=== PATIENT | female | born 1950 | race Hispanic/Latino ===

== ENCOUNTER 2022-12-28 10:20 | Emergency (ER) | payer BC, MEDICARE ==
[~2022-12-28] VITALS: Ht 165.1 cm; Wt 83.9 kg
[~2022-12-28 10:20] MED LIST: ALBUTEROL PO; ESCI-8 PO; LOSA50TA64 PO; NAPR-1180 PO; OMEP20CA12 PO
[2022-12-28] MEDS ORDERED: DEXAMETHASONE 4 MG TAB ONE (10:51)
[2022-12-28] MEDS ORDERED: IBUPROFEN 600 MG TABLET ONE (10:52)
[2022-12-28] MEDS ORDERED: D-ME118S47 PO (11:34)
[2022-12-28] MEDS ORDERED: BENZ200C53 PO (11:34)
[2022-12-28] MEDS ORDERED: LORA10TA7 PO (11:34)
[2022-12-28 11:42] VITALS: BP 139/75
== END 2022-12-28 13:25 | disposition home or self-care (01) ==
LOC: EDH 10:20
DX: J06.9 Acute upper respiratory infection, unspecified (principal); R05.9 Cough, unspecified; E11.9 Type 2 diabetes mellitus without complications; E78.00 Pure hypercholesterolemia, unspecified; I10 Essential (primary) hypertension; Z79.1 Long term (current) use of non-steroidal anti-inflammatories (NSAID); Z88.2 Allergy status to sulfonamides; Z88.8 Allergy status to other drugs, medicaments and biological substances; Z20.822 Contact with and (suspected) exposure to COVID-19; Z90.710 Acquired absence of both cervix and uterus
CPT/HCPCS: 99283; 71045; 87635; 87804 ×2; C9803; J8540